=== PATIENT | male | born 1955 | race Caucasian/White ===

== ENCOUNTER 2019-12-15 09:03 | Emergency (ER) | payer MEDICARE ==
--- NOTE | 2019-12-15 10:46 | ED ---
Lower Extremity - HPI Summary HPI Summary: This patient is a 64-year-old male presenting to the ED with concern for a left lower extremity blood clot. Patient states last evening he felt a dull ache in the back of his knee which did not radiate. He states he was having a difficult time ambulating so began walking with his crutches. He typically ambulates independently. Upon awakening this morning, he states he is unable to fully extend at the knee due to pain to the back of the knee. NO fullness, redness or swelling. Hx of hyperextending the knee in the past and the knee has always been "swollen." No hx of blood clots. No blood thinners. No recent travel. No fevers. - History of Current Complaint Chief Complaint: EDExtremityLower Stated Complaint: SWELLING ON THE BACK OF THE KNEE PER PTWIFE Time Seen by Provider: 12/15/19 09:15 Hx Obtained From: Patient Onset of Pain: Hours Onset/Duration: Hours Severity Initially: Mild Severity Currently: Mild Pain Intensity: 0 Pain Scale Used: 0-10 Numeric Timing: Constant Location: Is Discrete @ - left posterior knee pian Associated Signs And Symptoms: Negative: Swelling, Weakness Aggravating Factor(s): Movement, Weight Bearing Alleviating Factor(s): Rest Able to Bear Weight: Yes - Allergies/Home Medications Allergies/Adverse Reactions: Allergies Allergy/AdvReac Type Severity Reaction Status Date / Time No Known Allergies Allergy Verified 12/15/19 09:13 Home Medications: Home Medications Aspirin [Aspirin 81] 1 tab PO DAILY PRN 08/04/14 [History Confirmed 12/15/19] Albuterol inh POWDER (NF) [Proair Respiclick] 1 puff INH Q4H PRN 04/03/18 [ History Confirmed 12/15/19] Amlodipine/Atorvastatin [Amlodipine Besylate/Atorv 10-40 mg] 10 mg PO . IN THE MORNING 04/03/18 [History Confirmed 12/15/19] Meloxicam 7.5 mg PO DAILY 04/03/18 [History Confirmed 12/15/19] Naproxen Sodium [Naproxen 220 mg] 220 mg PO BID PRN 04/10/18 [History Confirmed 12/15/19] Atorvastatin* [Lipitor 40 MG*] 1 tab PO DAILY 12/15/19 [History Confirmed ] Empagliflozin/Linagliptin [Glyxambi 25 mg-5 mg Tablet] 1 tab PO DAILY 12/15/19 [ History Confirmed 12/15/19] Enalapril(NF) [Enalapril (NF)] 10 mg PO DAILY 12/15/19 [History Confirmed ] Fluticasone/Umeclidin/Vilanter [Trelegy Ellipta 100-62.5-25] 25 mcg PO DAILY 11/04 [History Confirmed 12/15/19] Spironolact/Hydrochlorothiazid [Spironolactone-Hctz 25-25 Tab] 1 tab PO DAILY [History Confirmed 12/15/19] buPROPion HCl [Bupropion HCl ER] 300 mg PO DAILY 12/15/19 [History Confirmed 11/04] PMH/Surg Hx/FS Hx/Imm Hx Previously Healthy: Yes Cardiovascular History: Reports: Hx Hypertension - NO MEDICATIONS - Immunization History Hx Pertussis Vaccination: No Immunizations Up to Date: Yes Infectious Disease History: No Infectious Disease History: Denies: Traveled Outside the [place] in Last 30 Days - Social History Occupation: Employed Part-time Lives: With Family Alcohol Use: None Hx Substance Use: No Substance Use Type: Reports: None Smoking Status (MU): Former Smoker Type: Cigarettes Amount Used/How Often: 46 YEARS Have You Smoked in the Last Year: Yes Review of Systems Negative: Fever, Chills, Fatigue, Skin Diaphoresis Negative: Palpitations, Chest Pain Negative: Shortness Of Breath, Cough Genitourinary: Negative Positive: no symptoms reported, see HPI Positive: Other - posterior knee pain Skin: Negative Neurological/Mental Status: Negative All Other Systems Reviewed And Are Negative: Yes Physical Exam Triage Information Reviewed: Yes Vital Signs On Initial Exam: Initial Vitals Temp Pulse Resp BP Pulse Ox 98.1 F 78 20 141/85 93 12/15/19 09:05 12/15/19 09:05 12/15/19 09:05 12/15/19 09:05 12/15/19 09:05 Vital Signs Reviewed: Yes Appearance: Positive: Well-Appearing, Well-Nourished Skin: Positive: Warm, Skin Color Reflects Adequate Perfusion Head/Face: Positive: Normal Head/Face Inspection Eyes: Positive: EOMI, RASHAD, Conjunctiva Clear Neck: Positive: Supple, No Lymphadenopathy Respiratory/Lung Sounds: Positive: Clear to Auscultation, Breath Sounds Present Cardiovascular: Positive: RRR, Pulses are Symmetrical in both Upper and Lower Extremities Musculoskeletal: Positive: Limited @ - full extension with pain, Pain @ - left posterior knee pain. Negative: Edema Left, Edema Right Neurological: Positive: Sensory/Motor Intact, Alert, Oriented to Person Place, Time, Speech Normal Psychiatric: Positive: Normal, Affect/Mood Appropriate AVPU Assessment: Alert Procedures - Sedation Patient Received Moderate/Deep Sedation with Procedure: No Diagnostics - Vital Signs Vital Signs Temp Pulse Resp BP Pulse Ox 12/15/19 10:10 64 93 12/15/19 09:36 98.6 F 12/15/19 09:25 69 165/89 92 12/15/19 09:23 72 93 12/15/19 09:05 98.1 F 78 20 141/85 93 - Laboratory Lab Statement: Any lab studies that have been ordered have been reviewed, and results considered in the medical decision making process. Lower Extremity Course/Dx - Course Course Of Treatment: Patient is evaluated for L posterior knee pain. No injury. States the back of the knee is "tight." On physical examination, there is no redness or swelling. No palpable cord. Patient denies pain at this time and states pain is resolved when lying still. Pain is positional, and is made worse with ambulation. Pt is able to ambulate well wth crutches and has full flexion and extension. No knee pain on physical exam. DVT US obtained which is negative for any acute findings. Patient is dx with muscle tightness/cramp. Encouraged moist heat and ibuprofen. - Diagnoses Differential Diagnosis/HQI/PQRI: Positive: Sprain, Strain Provider Diagnoses: Muscle tightness Discharge ED - Sign-Out/Discharge Documenting (check all that apply): Patient Departure - Discharge Plan Condition: Stable Disposition: HOME Referrals: Susana Tierney MD [Primary Care Provider] - Additional Instructions: Ibuprofen for inflammation - 600mg three times daily Moist heat to the area Gentle stretches - Billing Disposition and Condition Condition: STABLE Disposition: Home - Attestation Statements Provider Attestation: I was available for consult. This patient was seen by the RJ. The patient was not presented to, seen by, or examined by me. Garrick Boyer MD
[2019-12-15 11:27] VITALS: BP 118/83
== END 2019-12-15 12:15 | disposition home or self-care (01) ==
LOC: ED 09:03
DX: M62.838 Other muscle spasm (principal); I10 Essential (primary) hypertension; Z87.891 Personal history of nicotine dependence; Z79.82 Long term (current) use of aspirin; Z79.899 Other long term (current) drug therapy
CPT/HCPCS: 99283